=== PATIENT | male | born 2000 | race Caucasian/White ===

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

== ENCOUNTER 2019-01-15 07:32 | Emergency (ER) | payer OTHER ==
[~2019-01-15] VITALS: Ht 185.4 cm; Wt 86.2 kg
[2019-01-15] MEDS ORDERED: Motrin,Rufen800 MG PO (08:40)
== END 2019-01-15 08:55 | disposition home or self-care (01) ==
LOC: ED 07:32
DX: S39.012A Strain of muscle, fascia and tendon of lower back, initial encounter (principal); X58.XXXA Exposure to other specified factors, initial encounter; Y93.44 Activity, trampolining; Y92.89 Other specified places as the place of occurrence of the external cause; Y99.8 Other external cause status

== ENCOUNTER 2022-01-11 14:19 | Emergency (ER) | payer OTHER ==
[~2022-01-11] VITALS: Wt 81.6 kg
[~2022-01-11 14:19] MED LIST changes: +Motrin,Rufen800 MG PO
[2022-01-12] MEDS ORDERED: CEPHALEXIN500 M1 PO (21:43)
== END 2022-01-11 18:31 | disposition home or self-care (01) ==
LOC: ED 14:19
DX: S60.221A Contusion of right hand, initial encounter (principal); F17.200 Nicotine dependence, unspecified, uncomplicated; W22.01XA Walked into wall, initial encounter; Y93.89 Activity, other specified; Y92.89 Other specified places as the place of occurrence of the external cause; Y99.8 Other external cause status

== ENCOUNTER 2022-01-12 16:38 | Emergency (ER) | payer OTHER ==
[~2022-01-12] VITALS: Ht 185.4 cm; Wt 86.2 kg
[2022-01-12 18:40] LABS: BASO # 0.1 10*3/uL (0.0-0.1); BASO % 0.7 % (0.0-1.0); EOS # 0.2 10*3/uL (0.0-0.4); EOS % 1.5 % (1.0-4.0); HEMATOCRIT 44.1 % (42.0-52.0); LYMPH % 10.5 % (27.0-41.0); MEAN CORPUSCULAR HGB 29.9 pg (27.0-31.0); MEAN PLATELET VOLUME 10.5 fl (9.6-12.3); MONO # 0.5 10*3/uL (0.1-1.0); MONO % 5.2 % (3.0-9.0); NEUT % 81.9 % (47.0-73.0); PLATELET COUNT AUTOMATED 250 10*3/uL (130-400); RED BLOOD COUNT 5.01 10*6/uL (4.50-5.90); RED CELL DISTRI WIDTH 13.3 % (0-14.5); WHITE BLOOD COUNT 9.8 10*3/uL (4.8-10.8)
[2022-01-12 18:58] LABS: ALKALINE PHOSPHATASE 65 U/L (45-117); BUN 11 mg/dl (7-24); CHLORIDE 106 mmol/L (98-107); CREATININE 1.09 mg/dL (0.70-1.30); LIPASE 63 U/L (73-393); POTASSIUM 4.1 mmol/L (3.5-5.1); SGOT/AST 16 IU/L (3-35); SGPT/ALT 14 U/L (12-78); SODIUM 138 mmol/L (136-145)
[2022-01-12] MEDS ORDERED: CEPHALEXIN500 M1 PO (21:43)
== END 2022-01-12 22:02 | disposition left against medical advice (07) ==
LOC: ED 16:38
PROVIDERS: Physician Assistant
DX: R55 Syncope and collapse (principal); R59.0 Localized enlarged lymph nodes

== ENCOUNTER 2022-05-01 16:35 | Emergency (ER) | payer OTHER ==
[~2022-05-01] VITALS: Wt 86.2 kg
[~2022-05-01 16:35] MED LIST changes: +CEPHALEXIN500 M1 PO
[2022-05-01] MEDS ORDERED: PREDNISONE10 MG PO (18:00)
== END 2022-05-01 18:15 | disposition home or self-care (01) ==
LOC: ED 16:35
DX: J40 Bronchitis, not specified as acute or chronic (principal)

== ENCOUNTER 2023-05-19 16:42 | Emergency (ER) | payer SELFPAY ==
[~2023-05-19] VITALS: Ht 185.4 cm; Wt 82.6 kg
[2023-05-20] MEDS ORDERED: HYDROCODONE-AC1 EAC1 PO (18:33)
== END 2023-05-19 18:15 | disposition left against medical advice (07) ==
LOC: ED 16:42
DX: S69.91XA Unspecified injury of right wrist, hand and finger(s), initial encounter (principal); Z53.21 Procedure and treatment not carried out due to patient leaving prior to being seen by health care provider; X58.XXXA Exposure to other specified factors, initial encounter; Y93.89 Activity, other specified; Y92.89 Other specified places as the place of occurrence of the external cause; Y99.8 Other external cause status

== ENCOUNTER 2023-05-20 15:10 | Emergency (ER) | payer SELFPAY ==
[~2023-05-20] VITALS: Ht 185.4 cm; Wt 83.9 kg
[2023-05-20] MEDS ORDERED: HYDROCODONE-AC1 EAC1 PO (18:33)
== END 2023-05-20 18:43 | disposition home or self-care (01) ==
LOC: ED 15:10
DX: S62.316A Displaced fracture of base of fifth metacarpal bone, right hand, initial encounter for closed fracture (principal); Z98.890 Other specified postprocedural states; X50.1XXA Overexertion from prolonged static or awkward postures, initial encounter; Y93.72 Activity, wrestling; Y92.89 Other specified places as the place of occurrence of the external cause; Y99.8 Other external cause status

== ENCOUNTER → 2023-05-28 | Day surgery (SDC) | payer SELFPAY ==
[~2023-05-28] VITALS: Ht 185.4 cm; Wt 83.9 kg
[~2023-05-28] MED LIST changes: +HYDROCODONE-AC1 EAC1 PO
[2023-05-28 10:53] VITALS: BP 113/61
[2023-05-28 13:01] VITALS: BP 115/69
[2023-05-28 13:16] VITALS: BP 120/75
[2023-05-28 13:31] VITALS: BP 121/62
[2023-05-28 13:46] VITALS: BP 112/70
[2023-05-28 13:59] VITALS: BP 102/53
== END | disposition home or self-care (01) ==
LOC: SDC 05-27 08:00
PROVIDERS: ATTEND Orthopaedic Surgery
DX: S63.641A Sprain of metacarpophalangeal joint of right thumb, initial encounter (principal); F41.9 Anxiety disorder, unspecified; F32.A Depression, unspecified; X58.XXXA Exposure to other specified factors, initial encounter; Y93.72 Activity, wrestling; Y92.89 Other specified places as the place of occurrence of the external cause; Y99.8 Other external cause status

== ENCOUNTER → 2023-06-05 | Outpatient (CLI) | payer SELFPAY | END | disposition home or self-care (01) | LOC: ORTHO 01:29 | PROVIDERS: ATTEND Orthopaedic Surgery | DX: S63.641D Sprain of metacarpophalangeal joint of right thumb, subsequent encounter (principal); X58.XXXD Exposure to other specified factors, subsequent encounter ==

== ENCOUNTER → 2023-06-26 | Outpatient (CLI) | payer SELFPAY | END | disposition home or self-care (01) | LOC: ORTHO 00:45 | PROVIDERS: ATTEND Orthopaedic Surgery | DX: S63.641D Sprain of metacarpophalangeal joint of right thumb, subsequent encounter (principal); T84.21 Breakdown (mechanical) of internal fixation device of other bones; X58.XXXD Exposure to other specified factors, subsequent encounter ==

== ENCOUNTER 2024-10-14 09:36 | Emergency (ER) | payer SELFPAY ==
[~2024-10-14] VITALS: Ht 182.8 cm; Wt 81.6 kg
[2024-10-14] MEDS ORDERED: Ondansetron Hydrochloride 4 MG/2 ML VIAL IV ONE (10:10)
[2024-10-14] MEDS ORDERED: Ketorolac Tromethamine 30 MG/ML VIAL IV ONE (10:10)
[2024-10-14] MEDS ORDERED: SODIUM CHLORIDE 0.9% 1,000 ML IV ONE (10:10)
[2024-10-14] MEDS ORDERED: Ondansetron4 MG PO (10:12)
[2024-10-14 10:23] LABS: BASO # 0.1 10*3/uL (0.0-0.1); BASO % 1.2 % (0.0-1.0); EOS # 0.3 10*3/uL (0.0-0.4); EOS % 3.5 % (1.0-4.0); HEMATOCRIT 44.4 % (42.0-52.0); MEAN CELL VOLUME 87.1 fl (80.0-94.0); MEAN CORPUSCULAR HGB 29.6 pg (27.0-31.0); MEAN PLATELET VOLUME 10.3 fl (9.6-12.3); MONO # 0.5 10*3/uL (0.1-1.0); MONO % 5.6 % (3.0-9.0); NEUT # 5.1 10*3/uL (2.3-7.9); NEUT % 52.3 % (47.0-73.0); PLATELET COUNT AUTOMATED 235 10*3/uL (130-400); RED CELL DISTRI WIDTH 12.9 % (0-14.5); WHITE BLOOD COUNT 9.7 10*3/uL (4.8-10.8)
[2024-10-14 10:47] LABS: ALKALINE PHOSPHATASE 61 U/L (46-116); BUN 12 mg/dl (9-23); CHLORIDE 102 mmol/L (98-107); CPK 81 U/L (34-171); LIPASE 27 U/L (12-53); POTASSIUM 3.7 mmol/L (3.4-5.1); SGPT/ALT 7 U/L (5-49); TOTAL PROTEIN 7.6 gm/dL (6.0-8.0)
[2024-10-14 10:53] LABS: ETHYL ALCOHOL < 3.0 mg/dl (<3)
[2024-10-14 11:23] LABS: BILIRUBIN Negative (Negative); BLOOD Negative (Negative); CLARITY Clear (Clear); COLOR Yellow (Yellow); GLUCOSE Negative (Negative); KETONE Negative (Negative); LEUKO ESTERASE Negative (Negative); NITRITE Negative (Negative); PH 5.5 (4.5-8.0)
[2024-10-14 11:25] LABS: URINE AMPHETAMINES Negative (1000ng/ml); URINE BARBITURATES Negative (200ng/ml); URINE BENZODIAZEPINES Negative (200ng/ml); URINE CANNABINOIDS (THC) Positive (50ng/ml); URINE COCAINE Negative (300ng/ml); URINE METHADONE Negative (300ng/ml); URINE OPIATES Negative (300ng/ml); URINE PHENCYCLIDINE Negative (25ng/ml)
[2024-10-14 11:35] LABS: RBC 0-2 rbc/hpf (0-2); WBC 0-2 wbc/hpf (0-5)
== END 2024-10-14 11:45 | disposition home or self-care (01) ==
LOC: ED 09:36
PROVIDERS: Emergency Medicine
DX: R11.2 Nausea with vomiting, unspecified (principal); F12.10 Cannabis abuse, uncomplicated; R10.9 Unspecified abdominal pain; R00.2 Palpitations; R73.9 Hyperglycemia, unspecified; Z91.018 Allergy to other foods